=== PATIENT | male | born 1985 | race Caucasian/White ===

== ENCOUNTER 2025-05-21 11:43 | Outpatient (CLI) | payer OTHER, SELFPAY ==
[2025-05-21 12:08] LABS: Appearance Urine Clear (Clear)
[2025-05-21 12:23] LABS: Albumin* 4.4 g/dL (3.3-5.0); Chloride* 102 mmol/L (96-114); Potassium* 4.2 mmol/L (3.6-5.1); Sodium* 138 mmol/L (135-149)
[2025-05-21 12:26] LABS: Alanine Aminotransferase* 108 U/L (4-50); Alkaline Phosphatase* 89 U/L (40-150); Anion Gap 8 mEq/L (7-15); Aspartate Amino Transferase* 59 U/L (12-35); Bilirubin Total* 0.5 mg/dL (0.1-1.5); Blood Urea Nitrogen* 11 mg/dL (5-24); Carbon Dioxide* 28 mmol/L (20-32); Creatinine* 0.9 mg/dL (0.5-1.5); Estimated Glomerular Filt Rate 112 ml/min; Total Protein* 7.6 g/dL (6.0-8.3)
[2025-05-21 12:27] LABS: Calcium* 9.0 mg/dL (8.4-10.6); Glucose* 105 mg/dL (60-115)
== END 2025-05-21 11:44 | disposition home or self-care (01) ==
PROVIDERS: Visit Provider Chiropractor
DX: E11.9 Type 2 diabetes mellitus without complications (principal)
CPT/HCPCS: 36415; 80053; 81003